=== PATIENT | male | born 1965 | race Caucasian/White ===

== ENCOUNTER 2017-12-12 11:57 | Emergency (ER) | payer OTHER ==
[~2017-12-12] VITALS: Ht 170.2 cm; Wt 96.6 kg
[2017-12-12 12:01] VITALS: BP 149/92; Ht 170.2 cm; Wt 96.6 kg
== END 2017-12-12 13:13 | disposition home or self-care (01) ==
LOC: ED 11:57
DX: T25.122A Burn of first degree of left foot, initial encounter (principal); M19.90 Unspecified osteoarthritis, unspecified site

== ENCOUNTER 2018-04-27 14:56 | Emergency (ER) | payer SELFPAY ==
[~2018-04-27] VITALS: Ht 165.1 cm; Wt 96.2 kg
[2018-04-27 15:05] VITALS: Ht 165.1 cm; Wt 96.2 kg
[2018-04-27 16:50] VITALS: BP 149/69
== END 2018-04-27 16:50 | disposition home or self-care (01) ==
LOC: ED 14:56
DX: S90.31XA Contusion of right foot, initial encounter (principal); M19.90 Unspecified osteoarthritis, unspecified site; F32.9 Major depressive disorder, single episode, unspecified; L40.9 Psoriasis, unspecified; W17.89XA Other fall from one level to another, initial encounter; Y93.89 Activity, other specified; Y92.89 Other specified places as the place of occurrence of the external cause; Y99.8 Other external cause status